=== PATIENT | female | born 1965 | race Caucasian/White ===

== ENCOUNTER 2018-04-29 00:55 | Outpatient (CLI) | payer BC, SELFPAY ==
--- NOTE | 2018-04-29 12:33 | DI.MAMMO_ITS ---
SYMPTOMS/DIAGNOSIS: SCREENING, Z12.31 MAMMOGRAM: Mammograms were interpreted according to the usual protocol including computer analysis with CAD system, tomosynthesis and C view imaging. The breast tissue is of moderate radiodensity. There is no evidence of a mass. There are no suspicious calcifications. SUMMARY: No evidence of malignancy, Category I, yearly screening mammography is recommended. Category B for breast density. SA ASSESSMENT OF FINDINGS: Negative. Category 1. Patient will receive a letter notifying them of these results. BI-RADS category B. There are scattered areas of fibroglandular density.
== END 2018-04-29 01:15 ==
PROVIDERS: PCP Family Medicine; Visit Provider Family Medicine
DX: Z12.31 Encounter for screening mammogram for malignant neoplasm of breast (principal)
CPT/HCPCS: 77063; 77067

== ENCOUNTER 2019-07-12 12:42 | Outpatient (REF) | payer BC, SELFPAY ==
[2019-07-12 21:22] LABS: Anion Gap 7.5 mmol/L (3-11); BUN 14 mg/dL (7-18); CO2 30.5 mmol/L (21.0-32.0); CREATININE 0.66 mg/dL (0.55-1.02); Calcium 9.3 mg/dL (8.5-10.1); Chloride 103 mmol/L (98-107); Glucose 89 mg/dL (74-106); Potassium 4.1 mmol/L (3.5-5.1); Sodium 141 mmol/L (136-145)
== END 2019-07-12 13:02 ==
LOC: NCHCN 12:42
PROVIDERS: PCP Family Medicine; Visit Provider Family Medicine
DX: I10 Essential (primary) hypertension (principal)
CPT/HCPCS: 80048

== ENCOUNTER 2020-08-23 01:13 | Outpatient (CLI) | payer OTHER, SELFPAY ==
--- NOTE | 2020-08-23 12:30 | DI.MAMMO_ITS ---
EXAM: MG MAMMO SCREENING CLINICAL HISTORY: SCREENING, Z12.39 TECHNIQUE: Mammograms were interpreted according to the usual protocol including computer analysis w [employer] CAD system, tomosynthesis and C-view imaging. COMPARISON: FINDINGS: The breasts are heterogeneously dense. No dominant mass or clumped microcalcification is identified in either breast. The current examination is compared with previous examinations including April 2018 and there has been no gross interval change in appearance in comparison with the prior studies. IMPRESSION: No specific evidence of malignancy at this time. Routine screening examinations are suggested at yea rly intervals in this age group according to the ACS ACR guidelines. BI-RADS Category 1 - Negative Breast Density - Category C - Heterogeneously dense
== END 2020-08-23 01:33 ==
PROVIDERS: PCP Family Medicine; Visit Provider Family Medicine
DX: Z12.31 Encounter for screening mammogram for malignant neoplasm of breast (principal)
CPT/HCPCS: 77063; 77067

== ENCOUNTER 2020-09-26 10:22 | Outpatient (REF) | payer OTHER, SELFPAY ==
[2020-09-26 14:38] LABS: Anion Gap 8.1 mmol/L (3-11); BUN 11 mg/dL (7-18); CO2 31.9 mmol/L (21.0-32.0); CREATININE 0.8 mg/dL (0.55-1.02); Calcium 8.8 mg/dL (8.5-10.1); Calculated LDL 155 mg/dL (<100); Chloride 100 mmol/L (98-107); Cholesterol 229 mg/dL (<200); Glucose 97 mg/dL (74-106); HDL Cholesterol 61 mg/dL (40-60); Potassium 3.1 mmol/L (3.5-5.1); Sodium 140 mmol/L (136-145); Triglyceride 65 mg/dL (<150)
== END 2020-09-26 10:23 | disposition home or self-care (01) ==
LOC: NCHCN 10:22
PROVIDERS: PCP Family Medicine; Visit Provider Family Medicine
DX: I10 Essential (primary) hypertension (principal); Z13.220 Encounter for screening for lipoid disorders
CPT/HCPCS: 80048; 80061

== ENCOUNTER 2020-10-30 16:34 | Outpatient (REF) | payer OTHER, SELFPAY ==
--- NOTE | 2020-10-30 15:30 | PAPFT_PTH ---
PATIENT: America Pike LOC: [facility] U#:[id number] AGE/SX: 55/F ROOM: RE10/30/[address]: Argelia Jennings : 1965 BED: DIS: 10/30/2020 SPEC #: [id number] RECD: 10/31/20 12:58 STATUS: LUIS RENadia #: [id number] RIA: 10/30/20 15:[address]: Argelia Jennings DEPT: [facility] Cytology RECD BY: Ofelia Abraham Tissues: 1 - CX/ENDOCX FOR PAP SMEARS Procedures: PAP THIN PREP/UVM Screening HPV DNA PROBE Comments: [id number]
[2020-10-30 21:48] LABS: Potassium 3.2 mmol/L (3.5-5.1)
[2020-10-30 22:01] LABS: Hemoglobin A1C 5.6 % (<5.7)
== END 2020-10-30 16:35 | disposition home or self-care (01) ==
LOC: NCHCN 16:34
PROVIDERS: PCP Family Medicine; Visit Provider Family Medicine
DX: Z00.00 Encounter for general adult medical examination without abnormal findings (principal); E87.6 Hypokalemia; Z13.1 Encounter for screening for diabetes mellitus; Z12.4 Encounter for screening for malignant neoplasm of cervix; Z11.51 Encounter for screening for human papillomavirus (HPV)
CPT/HCPCS: 88142; 83036; 84132; 87624

== ENCOUNTER 2021-04-30 15:01 | Outpatient (REF) | payer OTHER, SELFPAY ==
[2021-04-30 17:16] LABS: Anion Gap 8.5 mmol/L (3-11); BUN 13 mg/dL (7-18); CO2 30.5 mmol/L (21.0-32.0); CREATININE 0.7 mg/dL (0.55-1.02); Chloride 103 mmol/L (98-107); Glucose 95 mg/dL (74-106); Potassium 3.7 mmol/L (3.5-5.1); Sodium 142 mmol/L (136-145)
== END 2021-04-30 15:02 | disposition home or self-care (01) ==
LOC: NCHCN 15:01
PROVIDERS: PCP Family Medicine; Visit Provider Family Medicine
DX: E78.5 Hyperlipidemia, unspecified (principal); E87.6 Hypokalemia; I10 Essential (primary) hypertension; E66.01 Morbid (severe) obesity due to excess calories
CPT/HCPCS: 80048

== ENCOUNTER 2021-06-18 15:44 | Outpatient (REF) | payer OTHER, SELFPAY ==
--- NOTE | 2021-06-18 11:45 | ENDOMET_PTH ---
PATIENT: America Pike LOC: [facility] U#:[id number] AGE/SX: 55/F ROOM: RE06/18/[address]: Argelia Jennings : 1965 BED: DIS: 06/18/2021 SPEC #: [id number] RECD: 06/19/21 12:46 STATUS: LUIS RENadia #: [id number] RIA: 06/18/21 11:[address]: Argelia Jennings DEPT: Surgical Specimen RECD BY: Ofelia Abraham Tissues: 1 - ENDOMETRIUM BX/KIM Procedures: GROSS AND MICRO LEVEL 4 Comments: [id number]
== END 2021-06-18 15:45 | disposition home or self-care (01) ==
LOC: NCHCN 15:44
PROVIDERS: PCP Family Medicine; Visit Provider Family Medicine
DX: N95.0 Postmenopausal bleeding (principal)
CPT/HCPCS: 88305

== ENCOUNTER 2021-07-23 02:33 | Outpatient (CLI) | payer OTHER, SELFPAY ==
[2021-07-23 10:15] VITALS: BP 122/77; PULSE 59; RESP 16; TEMP 37.2; O2SAT 96
[2021-07-23] MEDS: Normal Saline 500 ML 30 ML IV (10:25)
[2021-07-23] MEDS: Normal Saline Flush 10 ML SYR IVP (10:26)
[2021-07-23 10:35] VITALS: BP 118/69; PULSE 54; RESP 16; TEMP 37; O2SAT 97
[2021-07-23 10:55] VITALS: BP 123/69; PULSE 51; RESP 16; TEMP 37.3; O2SAT 98
[2021-07-23 11:30] VITALS: BP 115/74; PULSE 60; RESP 18; TEMP 37.2; O2SAT 97
[2021-07-23 11:50] VITALS: BP 122/67; PULSE 58; RESP 16; TEMP 37.1; O2SAT 98
== END 2021-07-23 02:34 | disposition home or self-care (01) ==
LOC: INF 02:34
PROVIDERS: PCP Family Medicine; Visit Provider Family Medicine
DX: U07.1 COVID-19 (principal)
CPT/HCPCS: 96365

== ENCOUNTER 2023-02-02 17:40 | Outpatient (REF) | payer BC, SELFPAY ==
[2023-02-02 22:45] LABS: Hemoglobin A1C 5.2 % (<5.7)
[2023-02-02 22:46] LABS: ALT 39 U/L (14-59); AST 38 U/L (15-37); Albumin 3.4 g/dL (3.4-5.0); Alkaline Phosphatase 82 U/L (46-116); Anion Gap 7.9 mmol/L (3-11); BUN 12 mg/dL (7-18); Bilirubin, Total 0.5 mg/dL (0.2-1.0); CO2 32.1 mmol/L (21.0-32.0); CREATININE 0.9 mg/dL (0.55-1.02); Calcium 9.2 mg/dL (8.5-10.1); Calculated LDL 174 mg/dL (<100); Chloride 101 mmol/L (98-107); Cholesterol 266 mg/dL (<200); Estimated GFR 75.03 (mL/min/1.73m2); Glucose 100 mg/dL (74-106); HDL Cholesterol 79 mg/dL (40-60); Potassium 3.3 mmol/L (3.5-5.1); Sodium 141 mmol/L (136-145); Total Protein 7.9 g/dL (6.4-8.2); Triglyceride 69 mg/dL (<150)
== END 2023-02-02 17:41 | disposition home or self-care (01) ==
LOC: NCHCN 17:40
PROVIDERS: PCP Family Medicine; Visit Provider Family Medicine
DX: Z13.220 Encounter for screening for lipoid disorders (principal); Z13.1 Encounter for screening for diabetes mellitus; E66.01 Morbid (severe) obesity due to excess calories
CPT/HCPCS: 80053; 80061; 83036

== ENCOUNTER 2023-02-18 01:01 | Outpatient (CLI) | payer BC, SELFPAY ==
--- NOTE | 2023-02-18 08:00 | DI.CTLCSR_ITS ---
Exam(s) CT CHEST LUNG CANCER SCREEN EXAM: CT CHEST LUNG CANCER SCREEN CLINICAL HISTORY: SMOKER/TOBACCO USE DISORDER, Z71.6. TECHNIQUE: Imaging Protocol: Low Dose Technique CONTRAST MATERIAL: None COMPARISON: No exams were available for comparison FINDINGS: CHEST: LUNGS: There are no ominous pulmonary nodules. There are no confluent infiltrates. No pleural effusi ons. MEDIASTINUM: There is no obvious hilar nor mediastinal adenopathy. CARDIAC: Heart size is normal. There is no pericardial effusion.Caliber of the thoracic aorta is wit hin normal limits. OTHER: OSSEOUS: No significant osseous lesions.Fractures.. IMPRESSION: 1. No significant pulmonary nodules, infiltrates, nor pleural effusions. 2. No obvious intrathoracic adenopathy. 3. Lung RADS Cat 1 - Negative: No nodules and definitely benign nodules Lung-RADS 1.0 CATEGORIES: Category 0 - Prior chest CT exam(s) being located for comparison. Category 1 - Annual screening in 12 months. No nodules or definitely benign nodules. Category 2 - Annual screening in 12 months. Benign appearance. Nodules with low likelihood of becomin g active cancer. Category 3 - 6-month follow-up. Probably benign. Short-term follow-up suggested. Nodules with low lik elihood of becoming active cancer. Category 4A - 3-month follow-up and CT/PET if >8 mm in size. Suspicious finding. Findings which requi re additional testing. Category 4B - Findings which require additional testing and tissue sampling. Category 4X - Category 3 or 4 nodules with additional features or imaging findings that increases the suspicion of malignancy. Modifier S- Potentially clinically significant findings (non lung cancer) RADIATION DOSE DELIVERED: 70.53mGy.cm Total DLP DATA REPOSITORY: All CT scans at this facility are submitted to the National Radiology Data Registry (NRDR) Dose Index Registry (DIR) with the [employer] (ACR). RADIATION OPTIMIZATION: All CT scans at this facility use at least one of these dose optimization te chniques: automated exposure control; mA and/or kV adjustment per patient size (includes targeted exa ms where dose is matched to clinical indication); or iterative reconstruction.
--- NOTE | 2023-02-18 08:30 | DI.MAMMO_ITS ---
Exam(s) MAMMO SCREENING EXAM: MAMMO SCREENING CLINICAL HISTORY: SCREENING, Z12.31. TECHNIQUE: Bilateral full field digital CC and MLO mammographic images were obtained with 3D tomosyn thesis and utilizing computer aided detection (CAD). COMPARISON: Prior mammograms were reviewed. FINDINGS: There has been no significant change in the appearance and distribution of the fibroglandular tissue. There are no new spiculated masses nor malignant appearing microcalcification groups. There is no significant architectural distortion nor skin thickening-retraction. IMPRESSION: No radiographic evidence of malignancy. BI-RADS Category 1 - Negative Breast Density - Category B - Scattered areas of fibroglandular density Breast density Category C or D implies that the patient has dense breast tissue. Dense breast tissue can make it harder to find cancer on a mammogram. Dense breast tissue is also associated with an incr eased risk of breast cancer. This information about the result of the mammogram report was provided to the patient to raise their awareness. Use this report when you speak with the patient about their risks for breast cancer, which includes their family history. At that time, you may recommend additional screening tests (Ultrasoun d or MRI) as these tests may add significant information. A negative radiographic report should not delay biopsy if a dominant or clinically suspicious mass is present. Up to ten percent of cancers are not identified on mammography. A negative report may reinforce clinical impression. Adenosis and dense breasts may obscure an underlying neoplasm. False positive reports average 6 to 10%. Patient will receive a letter notifying them of these results.
== END 2023-02-18 01:21 ==
LOC: DI 01:01
PROVIDERS: PCP Family Medicine; Visit Provider Family Medicine
DX: Z12.31 Encounter for screening mammogram for malignant neoplasm of breast (principal); Z12.2 Encounter for screening for malignant neoplasm of respiratory organs; F17.210 Nicotine dependence, cigarettes, uncomplicated
CPT/HCPCS: 71271; 77063; 77067

== ENCOUNTER 2023-08-04 15:07 | Outpatient (REF) | payer BC, SELFPAY ==
[2023-08-04 21:01] LABS: Anion Gap 4.9 mmol/L (3-11); BUN 17 mg/dL (7-18); CO2 28.1 mmol/L (21.0-32.0); CREATININE 0.9 mg/dL (0.55-1.02); Calcium 8.6 mg/dL (8.5-10.1); Chloride 106 mmol/L (98-107); Estimated GFR 75.03 (mL/min/1.73m2); Glucose 127 mg/dL (74-106); Potassium 3.5 mmol/L (3.5-5.1); Sodium 139 mmol/L (136-145)
== END 2023-08-04 15:08 | disposition home or self-care (01) ==
LOC: NCHCN 15:07
PROVIDERS: PCP Family Medicine; Visit Provider Family Medicine
DX: E87.6 Hypokalemia (principal)
CPT/HCPCS: 80048

== ENCOUNTER 2023-11-25 18:53 | Outpatient (REF) | payer BC, SELFPAY ==
[2023-11-25 21:34] LABS: Anion Gap 11.3 mmol/L (3-11); BUN 13 mg/dL (7-18); CO2 26.7 mmol/L (21.0-32.0); CREATININE 0.8 mg/dL (0.55-1.02); Calcium 9.4 mg/dL (8.5-10.1); Chloride 100 mmol/L (98-107); Estimated GFR 85.89 (mL/min/1.73m2); Glucose 95 mg/dL (74-106); Potassium 3.1 mmol/L (3.5-5.1); Sodium 138 mmol/L (136-145)
== END 2023-11-25 18:54 | disposition home or self-care (01) ==
LOC: NCHCN 18:53
PROVIDERS: PCP Family Medicine; Visit Provider Family Medicine
DX: E87.6 Hypokalemia (principal)
CPT/HCPCS: 80048

== ENCOUNTER 2023-12-28 06:06 | Day surgery (SDC) | payer BC, SELFPAY ==
--- NOTE | 2023-12-25 07:37 | BOWEL_PTH ---
PATIENT: America Pike LOC: [facility] U#:[id number] AGE/SX: 58/F ROOM: RE12/28/[address]: Dale Musa MD : 1965 BED: DIS: 12/28/2023 SPEC #: [id number] RECD: 12/28/23 12:51 STATUS: LUIS RE #: [id number] RIA: 12/25/23 07:[address]: Dale Musa DEPT: Surgical Specimen RECD BY: Ofelia Abraham ENTERED: 12/28/23 12:53 SP TYPE: Bowel OTHR DR: Argelia Jennings Tissues: 1 - BIOPSY BOWEL 2 - BIOPSY BOWEL 3 - BIOPSY BOWEL 4 - BIOPSY BOWEL 5 - BIOPSY BOWEL Procedures: GROSS AND MICRO LEVEL 4 Comments: [id number]
--- NOTE | 2023-12-27 13:31 | W.PM.DSUDISC ---
Date of service: 12/28/23 Time of Service: 08:01 Discharge Plan Disposition Patient Disposition: Home Condition: Good Discharge Details Reason For Visit: screening colonoscopy Attending Provider: Dale Musa Primary Care Provider: Argelia Jennings Home Meds and New Rx's Prescriptions: Continued fluticasone propion-salmeterol [Advair HFA] 115-21 mcg/actuation HFA aerosol inhaler 1 puff inhalation BID albuterol sulfate 90 mcg/actuation HFA aerosol inhaler 2 puff inhalation QID calcipotriene-betamethasone 0.005-0.064 % ointment 1 applic topical DAILY varenicline [Chantix Continuing Month Box] 1 mg tablet 1 mg PO BID diclofenac sodium [Aleve (diclofenac)] 1 % gel 2 g topical QID Rx Instructions: apply to single elbow, wrist or hand; for hand includes palm/fingers/back of hand famotidine 40 mg tablet 40 mg PO DAILY fluoxetine 20 mg capsule 20 mg PO DAILY ipratropium-albuterol 0.5 mg-3 mg(2.5 mg base)/3 mL solution for nebulization 3 ml inhalation QID PRN loratadine [Allergy Relief (loratadine)] 10 mg tablet 10 mg PO DAILY spironolactone 25 mg tablet 25 mg PO DAILY varenicline 1 mg tablet 1 mg PO BID hydrochlorothiazide 25 mg tablet 12.5 mg PO DAILY Discontinued bisacodyl [Dulcolax (bisacodyl)] 5 mg tablet,delayed release (DR/EC) 5 mg PO ONCE Qty: 4 0RF Rx Instructions: Take per colonoscopy instructions provided by ordering providers office polyethylene glycol 3350 17 gram/dose powder 17 g PO ONCE Qty: 238 0RF Rx Instructions: Take per colonoscopy instructions provided by ordering providers office Discharge Instructions Instructions: Colorectal Polyps (GEN) Additional Instructions: America, we were able to complete your colonoscopy today without any issues. I did find and removed 7 polyps in total. 1 of these polyps was a little bit large, but otherwise there were no features that I found worrisome to the naked eye. All of these will be sent off for testing, and once I know the nature of the polyps, the office will be in touch with any other recommendations. If you have any questions at all, please do not hesitate to ask at any point. 1. If tolerated, consume a soft, low fiber diet for 1-2 days. 2[address] Do not drive, drink alcohol, operate machinery, make critical decisions, or do activities that require coordination or balance for 24 hours. 3. Because air was put into your colon during the procedure, expelling air from your rectum (passing gas or farting) is normal. 4. You may not have a bowel movement for 1-3 days because of the colonoscopy prep. This is normal. 5. Go directly to the emergency room if you notice any of the following: Develop chills (warm to touch), or if you have a thermometer and your temperature is above 101 Difficulty breathing or difficultly swallowing Persistent vomiting Severe abdominal pain, other than gas cramps Severe chest pain Black, tarry stools Any bleeding ? exceeding one tablespoon 6. Call your physician if the site where your intravenous was started becomes red, swollen, painful, and warm to touch. 7. Your physician has reviewed your pre-procedure medications. Please continue to take those medications as previously ordered. You will be given specific information/education regarding any changes to your medications before leaving. Activity:: Activity as Tolerated Diet:: As Tolerated Discharge Orders Discharge Orders: Discharge Order (Routine); Ordered 12/27/23 Ordered By: Dale Musa DS: Diagnosis Discharge Diagnosis (1) Encounter for screening colonoscopy: Status: Acute Asessment and Plan: Follow-up on polypectomy results
--- NOTE | 2023-12-27 13:32 | COLE_ITS ---
Date of service: 12/28/23 Time of Service: 08:02 Colonoscopy Report Date of procedure: 12/28/23 Pre-op diagnosis general: screening colonoscopy Post-op diagnosis procedure note: other (Colorectal polyps) Procedure: colonoscopy with polypectomy Surgeon: Dale Musa Anesthesia Type: General:No Airway Estimated blood loss (mL): 10 Pathology: other (0.25 cm rectal polyps x 2, 0.75 cm polyp at 100 cm, 0.25 cm polyp at 95 cm, 0.25 cm polyp at 75 cm, 0.5 cm polyp at 70 cm, 0.25 cm polyp also at 70 cm) Complications: None Disposition: same day Indications: America is a 58 year old woman with a positive cologuard test who needs a follow up screening colonoscopy Prep: Miralax/Dulcolax Findings: 0.25 cm rectal polyps x 2, 0.75 cm polyp at 100 cm, 0.25 cm polyp at 95 cm, 0.25 cm polyp at 75 cm, 0.5 cm polyp at 70 cm, 0.25 cm polyp also at 70 cm Procedure Description: After the induction of anesthesia, and with the patient in left lateral decubitus position, I began by performing an external anorectal exam.? Perineum and skin were normal, as was the anal verge.? There are some external hemorrhoids.? Next, I performed a digital rectal exam.? I did not appreciate any abnormal findings.? Next, I advanced a colonoscope into the rectal vault.? I performed retroflexion.? This was normal.? There are several polyps within the rectal vault. Majority were less than 0.25 cm. Narrowband imaging was used to assist with analysis. 2 of the polyps had features that raise suspicion for adenomatous polyps, and these were removed with cold forceps without any issue. Using insufflation, I then advanced the colonoscope beyond the rectal folds and into the sigmoid colon before advancing towards the cecum.? The quality of the prep was excellent.? The scope was noted to be in the cecum by identification of the ileocecal valve and appendiceal orifice.? I then began withdrawing the colonoscope using repeated irrigation as necessary for full evaluation of the colonic mucosa. Around 100 cm from the anal verge was a 0.75 cm polyp. It was mostly sessile. This was removed with cold snare polypectomy without any issue. I also found a 0.25 cm polyp at 95 cm, and a 0.25 cm polyp at 75 cm. Both of these were flat, and both were removed with cold forceps without any difficulty. There were 2 polyps just at 70 cm from the anal verge. 1 of these was 0.5 cm, the other was 0.25 cm. The larger of these 2 was removed with a cold snare, and the other was removed with forceps. There was minimal bleeding at the sites. Once the scope was withdrawn to the level of the rectum, great care was taken to examine portions of the rectal folds.? Finally, the scope was withdrawn and the patient was brought to the same-day surgery recovery unit as the anesthetic wore off. ?The findings and instructions were shared with the patient prior to discharge. [place] Bowel Prep [place] Bowel Prep Right Colon: 3 Left Colon: 3 Transverse Colon: 3 Total Score: 9
[2023-12-28 06:15] VITALS: BP 140/80; PULSE 84; RESP 18; TEMP 36; O2SAT 95
[2023-12-28] MEDS: Lactated Ringers 1,000 ML 80 ML IV (06:42)
--- NOTE | 2023-12-28 06:58 | ANES.PREOP_ITS ---
General Info Date of Service Date Performed: 12/28/23 Height: 5 ft Weight: 95.1 kg Body Mass Index (BMI): 40.9 Surgical Procedure: Operation Date: 12/28/23 07:35 Proposed Procedure Side Surgeon farhad Musa MD Meds Allergies and Home Medications Allergies Allergy/AdvReac Type Severity Reaction Status Date / Time sulfadiazine Allergy Unknown Itching Verified 12/28/23 06:25 Home Medication Medication Instructions Recorded albuterol sulfate 90 mcg/actuation 2 puff inhalation QID 12/14/23 aerosol inhaler calcipotriene-betamethasone 0.005 1 applic topical DAILY 12/14/23 %-0.064 % topical ointment diclofenac sodium 1 % topical gel 2 g topical QID 12/14/23 (Aleve (diclofenac)) famotidine 40 mg tablet 40 mg PO DAILY 12/14/23 fluoxetine 20 mg capsule 20 mg PO DAILY 12/14/23 fluticasone propionate 115 1 puff inhalation BID 12/14/23 mcg-salmeterol 21 mcg/actuation HFA inhaler (Advair HFA) ipratropium 0.5 mg-albuterol 3 mg 3 ml inhalation QID PRN 12/14/23 (2.5 mg base)/3 mL nebulization soln loratadine 10 mg tablet (Allergy 10 mg PO DAILY 12/14/23 Relief (loratadine)) spironolactone 25 mg tablet 25 mg PO DAILY 12/14/23 varenicline 1 mg tablet 1 mg PO BID 12/14/23 varenicline 1 mg tablet (Chantix 1 mg PO BID 12/14/23 Continuing Month Box) hydrochlorothiazide 25 mg tablet 12.5 mg PO DAILY 12/17/23 Current Visit Medications: Current Medications Generic Name Dose Route Start Last Admin Trade Name Freq PRN Reason Stop Dose Admin Hyoscyamine Sulfate 0.125 mg 12/27/23 13:34 Hyoscyamine 0.125 Mg Sl/Oral/Chew SL 01/26/24 13:33 DIRECTED PRN Ringer's Solution 1,000 mls @ 80 mls/hr 12/28/23 06:00 12/28/23 06:42 IV 12/28/23 23:59 80 mls/hr INFUSION DAVID Administration IV Miscellaneous Supplies 1 each 12/28/23 06:00 Iv Access IV 12/28/23 23:59 DIRECTED DAVID Ondansetron HCl 4 mg 12/27/23 13:34 Ondansetron 4 Mg/2 Ml Vial IVP 01/26/24 13:33 Q4H PRN PRN Nausea / Vomiting Sodium Chloride 0 ml 12/28/23 06:00 Normal Saline Flush 10 Ml Syr IV 12/28/23 23:59 PRN PRN Sodium Chloride 0 ml 12/28/23 06:00 Normal Saline 10 Ml Vial IJ 12/28/23 23:59 DIRECTED PRN Sterile Water 0 ml 12/28/23 06:00 Water,Injection,Sterile 10 Ml Vial IJ 12/28/23 23:59 DIRECTED PRN PFSH Active Problems Active Problems: Problem Status Onset Code Encounter for screening colonoscopy Z12.11 Medical History Medical History Mild persistent asthma, uncomplicated Smoker History of peptic ulcer History of nutritional disorder Prediabetes Psoriasis Microscopic hematuria Steatosis of liver Anal fistula Acute exacerbation of chronic obstructive airways disease Essential hypertension Anxiety Severe obesity Hypokalemia Hyperlipidemia Tobacco Smoking/Tobacco Use Status: Current every day Alcohol Alcohol Intake: current Alcohol intake frequency: 3 or more drinks per day Substance Use Substance use: Socially Substance use type: marijuana Vital Signs and Lab Results Vital Signs Most Recent Vital Signs in EMR: Most Recent Vital Signs Temp Pulse Resp BP Pulse Ox 36 C L 84 18 140/80 95 12/28/23 06:15 12/28/23 06:15 12/28/23 06:15 12/28/23 06:15 12/28/23 06:15 Lab Results Blood Type / Crossmatch: 2 No Data to Display Complete Blood Count: 2 No Data to Display Complete Metabolic Panel: 2 No Data to Display Liver Function Panel: 2 No Data to Display Coagulation Panel: 2 No Data to Display Cardiac Panel: 2 No Data to Display Arterial Blood Gas: 2 No Data to Display Venous Blood Gas: 2 No Data to Display Pancreas Panel: 2 No Data to Display Thyroid Panel: 2 No Data to Display Infectious Disease: 2 No Data to Display Blood Cultures: 2 No Data to Display Toxicology Panel: 2 No Data to Display Anesthesia Assessment and Plan Anesthesia History Personal History: No History of Anesthesia Complications Family History: No Family History of Anesthesia Complications Exercise Tolerance Exercise Tolerance: Metabolic Equivalents>4 Pertinent Negatives Pertinent Negatives: No Symptoms of GERD, No Major Cardiovascular Symptoms or Complaints, No Major Pulmonary Symptoms or Complaints and No History of CVA/TIA Cardiac & Pulmonary Exam Cardiac Exam: Normal S1/S2 Heart Sounds Pulmonary Exam: Clear Bilateral Breath Sounds Implantable Cardiac Device Does patient have a Pacemaker or an ICD?: No Airway Exam Known Difficult Airway: No Mallampati Class: 2 Mouth Opening: Normal (> 3cm) Thyromental Distance: Greater than 3 cm Neck Range of Motion: Full ROM Neck Circumference: Normal Teeth Condition: Normal Dentition Tooth Numberin 1. Chipped/broken ASA Classification ASA Score: ASA 3 Emergency Case?: No NPO Status NPO Status: NPO Clears >2 hours, Solids >8 hours Anesthesia Plan Resuscitation Status: Full Code Anesthesia Technique: General Anesthesia Airway Planned: Natural Airway Monitors Used: Standard Monitors
[2023-12-28 08:01] VITALS: BP 133/86; PULSE 69; RESP 18; TEMP 36.3; O2SAT 97
[2023-12-28 08:21] VITALS: BMI 40.9
--- NOTE | 2023-12-28 08:21 | W.ANESPOSTOP ---
Postoperative Evaluation Date, Time and Location Date Performed: 12/28/23 Time Performed: 08:21 Patient Location: Day Surgery Unit Vital Signs Most Recent Imported Vital Signs: Most Recent Vital Signs Temp Pulse Resp BP Pulse Ox 36.3 C L 69 18 133/86 97 12/28/23 08:01 12/28/23 08:01 12/28/23 08:01 12/28/23 08:01 12/28/23 08:01 Pain Score Most Recent Pain Score: Most Recent Pain Score Pain Level 0 12/28/23 08:01 Assessment Mental Status: Awake (Alert & Oriented to Patient Baseline) Airway and Respiratory Function: Patent airway with normal (patient baseline) respiratory exam Cardiovascular Function: Hemodynamically Stable Hydration Status: Adequately Hydrated Nausea & Vomiting: No Nausea or Vomiting Pain: Pt. Denies Any Pain Peripheral Nerve Block: Patient did not receive a nerve block
[2023-12-28 08:22] VITALS: BP 116/75; PULSE 59; RESP 16; TEMP 36.3; O2SAT 98
== END 2023-12-28 08:41 | disposition home or self-care (01) ==
LOC: SUR 06:06
PROVIDERS: PCP Family Medicine; Visit Provider Surgery
PROC: 0DJD8ZZ Inspection of Lower Intestinal Tract, Via Natural or Artificial Opening Endoscopic (ICD-10-PCS; CPT 45378; principal; 2023-12-28 07:30)
DX: Z12.11 Encounter for screening for malignant neoplasm of colon (principal); D12.3 Benign neoplasm of transverse colon; K62.1 Rectal polyp; K64.8 Other hemorrhoids; D12.4 Benign neoplasm of descending colon
CPT/HCPCS: 45380; 45385; 88305; J2704

== ENCOUNTER 2024-01-14 14:56 | Outpatient (REF) | payer BC, SELFPAY ==
[2024-01-14 21:18] LABS: Hemoglobin A1C 5.5 % (<5.7)
[2024-01-14 21:24] LABS: ALT 25 U/L (14-59); AST 23 U/L (15-37); Albumin 3.3 g/dL (3.4-5.0); Alkaline Phosphatase 76 U/L (46-116); Anion Gap 7.3 mmol/L (3-11); BUN 10 mg/dL (7-18); Bilirubin, Total 0.5 mg/dL (0.2-1.0); CO2 30.7 mmol/L (21.0-32.0); CREATININE 0.9 mg/dL (0.55-1.02); Calcium 9.2 mg/dL (8.5-10.1); Chloride 104 mmol/L (98-107); Estimated GFR 74.57 (mL/min/1.73m2); Glucose 104 mg/dL (74-106); Potassium 3.7 mmol/L (3.5-5.1); Sodium 142 mmol/L (136-145); Total Protein 7.6 g/dL (6.4-8.2)
== END 2024-01-14 14:57 | disposition home or self-care (01) ==
LOC: NCHCN 14:56
PROVIDERS: PCP Family Medicine; Visit Provider Family Medicine
DX: I10 Essential (primary) hypertension (principal); Z13.1 Encounter for screening for diabetes mellitus
CPT/HCPCS: 80053; 83036

== ENCOUNTER 2024-12-21 17:45 | Outpatient (REF) | payer BC, SELFPAY ==
[2024-12-21 21:51] LABS: ALT 37 U/L (14-59); AST 35 U/L (15-37); Albumin 3.5 g/dL (3.4-5.0); Alkaline Phosphatase 86 U/L (46-116); Anion Gap 6.7 mmol/L (3-11); BUN 16 mg/dL (7-18); Bilirubin, Total 0.3 mg/dL (0.2-1.0); CO2 30.3 mmol/L (21.0-32.0); CREATININE 0.9 mg/dL (0.55-1.02); Calcium 9.6 mg/dL (8.5-10.1); Calculated LDL 146 mg/dL (<100); Chloride 101 mmol/L (98-107); Cholesterol 228 mg/dL (<200); Glucose 93 mg/dL (74-106); HDL Cholesterol 63 mg/dL (>or=50); Potassium 3.7 mmol/L (3.5-5.1); Sodium 138 mmol/L (136-145); Total Protein 8.1 g/dL (6.4-8.2); Triglyceride 97 mg/dL (<150)
[2024-12-21 22:14] LABS: Hemoglobin A1C 5.3 % (<5.7)
== END 2024-12-21 17:46 | disposition home or self-care (01) ==
LOC: NCHCN 17:45
PROVIDERS: PCP Family Medicine; Visit Provider Family Medicine
DX: I10 Essential (primary) hypertension (principal); R73.03 Prediabetes; E78.5 Hyperlipidemia, unspecified
CPT/HCPCS: 80053; 80061; 83036